=== PATIENT | female | born 1995 | race Caucasian/White ===

== ENCOUNTER 2019-07-20 10:52 | Emergency (ER) | payer BC, SELFPAY ==
[2019-07-20 11:16] VITALS: BP 140/77; PULSE 91; RESP 16; TEMP 36.9; O2SAT 100
--- NOTE | 2019-07-20 11:24 | ED.URI ---
HPI - URI/Sore Throat General Chief Complaint: Nausea/Vomiting/Diarrhea Stated Complaint: Abd pain Time Seen by Provider: 07/20/19 11:25 Source: patient and family History of Present Illness HPI Narrative: PATIENT PRESENTS WITH COUGH , GENERALIZED BODY ACHES, FEVER AND NASAL CONGESTION FOR THE PAST 5 DAYS. NORMAL APPETITE NORMAL ACTIVITY. REPORTS LOW BACK PAIN. NO GROSS HEMATURIA, NO CONCERN FOR STD NO VAGINAL DISCHARGE. NO ABDOMINAL PAIN. PATIENT DID HAVE NAUSEA YESTERDAY BUT NONE TODAY. NO ABDOMINAL PAIN TODAY. NO DIARRHEA. MD elicited complaint: fever, cough and nasal congestion Severity: mild Related Data Allergies Allergy/AdvReac Type Severity Reaction Status Date / Time latex Allergy Rash Verified 07/20/19 11:31 UNKNOWN ANTIBIOTIC Allergy Hives Uncoded 04/30/19 12:12 Review of Systems Review of Systems: Narrative: CONSTITUTIONAL: Denies fever, chills, or sweats. EYES: Denies visual changes, redness, or discharge. ENT: Denies, congestion, sore throat, or otalgia. Reports nasal congestion CARDIOVASCULAR: Denies chest pain, palpitations, or edema. RESPIRATORY: Denies cough or dyspnea. GASTROINTESTINAL: Denies abdominal pain, nausea, vomiting, or diarrhea. GENITOURINARY: Denies hematuria. SKIN: Denies rash or itching. MUSCULOSKELETAL: Denies , joint pain, or myalgia. Reports low back pain NEUROLOGIC: Denies headache, numbness, or weakness. PSYCHIATRIC: Denies anxiety or depression. FORMERLY [facility] Past Medical History Medical History Asthma Comments At time of signature, agree with nursing past medical, surgical, social and family history. There is no relevant family history pertinent to the presenting complaint Exam Narrative: Exam Narrative: GENERAL: Well-appearing, well-nourished, and in no acute distress. HEAD: Normocephalic, atraumatic. EYES: PERRLA and EOMI. ENT: Nares clear, no rhinorrhea or epistaxis. Mucous membranes moist. NECK: Supple. CHEST: Clear to auscultation. No respiratory distress. HEART: Regular rate and rhythm. No murmur heard. Normal peripheral pulses. ABDOMEN: Soft, nontender, nondistended, normal active bowel sounds. EXTREMITIES: Normal range of motion. No edema. SKIN: Warm, dry, no rash. NEURO: No focal deficits. Alert and oriented x3. [place] Coma Scale Eye Opening: Spontaneous 4 [place] Coma Scale Motor: Obeys Commands 6 [place] Coma Scale Verbal: Oriented 5 [place] Coma Scale Total 15 Course Vital Signs Vital signs: Vital Signs Temperature 36.9 C 07/20/19 11:16 Pulse Rate 91 07/20/19 11:16 Respiratory Rate 16 07/20/19 11:16 Blood Pressure 140/77 07/20/19 11:16 Pulse Oximetry 100 07/20/19 11:16 Temperature 36.9 C 07/20/19 11:16 Pulse Rate 91 07/20/19 11:16 Respiratory Rate 16 07/20/19 11:16 Blood Pressure 140/77 07/20/19 11:16 Pulse Oximetry 100 07/20/19 11:16 Please BRI schedule a followup visit with your personal physician for further evaluation and treatment. Including recheck and discussion of your blood pressure. If your symptoms persist, change or worsen significantly before you can contact your personal physician then please, without delay, go to the emergency department for further evaluation MDM - URI/Sore Throat Differential Diagnosis Differential diagnosis: Likely upper respiratory infection, otitis media, bronchitis and influenza Lab Data Labs: Influenza A Screen Negative Reference Range: Negative Influenza B Screen Negative Reference Range: Negative Urine Glucose Negative Reference Range: Negative Urine Bilirubin Negative Reference Range: Negative Urine Ketone Negative Reference Range: Negative Urine Specific [place] 1.020 Reference Range:1.001-1.035 Urine Blood 2+ Reference Range: Negative * *
== END 2019-07-20 11:45 | disposition home or self-care (01) ==
PROVIDERS: Emergency Provider Nurse Practitioner Family
DX: B34.9 Viral infection, unspecified (principal); R30.0 Dysuria; N39.0 Urinary tract infection, site not specified
CPT/HCPCS: 81003; 87077; 87086; 87088; 87804; 99213; G0463

== ENCOUNTER 2019-08-23 08:58 | Emergency (ER) | payer BC, SELFPAY ==
[2019-08-23 09:06] VITALS: BP 138/67; PULSE 74; RESP 18; TEMP 36.6; O2SAT 100
--- NOTE | 2019-08-23 09:11 | ED.EAR ---
HPI - Ear Problem General Chief complaint: Ear Stated complaint: Ear pain and fever Time Seen by Provider: 08/23/19 09:11 Source: patient and RN notes reviewed History of Present Illness HPI Narrative: Patient is a 24-year-old female that presents the urgent care with complaints of left ear pain as well as dark orange drainage from the ear. Patient states is been going on for 2 days and she has not used anything [id number] for her symptoms. No other acute complaints. No acute distress noted. Patient read the plan of care. Related Data Home Medications Medication Instructions Recorded Confirmed No Home Medications 08/23/19 08/23/19 Allergies Allergy/AdvReac Type Severity Reaction Status Date / Time latex Allergy Rash Verified 08/23/19 09:11 sulfamethoxazole Allergy Hives Verified 08/23/19 09:11 [From Bactrim] trimethoprim [From Bactrim] Allergy Hives Verified 08/23/19 09:11 Review of Systems Review of Systems: Narrative: CONSTITUTIONAL: Reports a fever EYES: Denies visual changes, redness, or discharge. ENT: Reports of orange drainage from the left ear with pain CARDIOVASCULAR: Denies chest pain, palpitations, or edema. RESPIRATORY: Denies cough or dyspnea. GASTROINTESTINAL: Denies abdominal pain, nausea, vomiting, or diarrhea. GENITOURINARY: Denies dysuria or hematuria. SKIN: Denies rash or itching. MUSCULOSKELETAL: Denies back pain, joint pain, or myalgia. NEUROLOGIC: Denies headache, numbness, or weakness. All other systems reviewed are negative, except as documented in HPI. PMFSH Comments At the time of my signature, I reviewed and agree with the nursing past medical, surgical, social, and family history. There is no relevant family history pertinent to the patient complaint. Exam Narrative: Exam Narrative: GENERAL: This is a well-nourished, well-developed patient, in no apparent distress. HEAD: normocephalic, atraumatic. EYES: PERRL. Sclera clear/white. Vision is grossly intact. EARS: External ears normal, auditory canals clear and without drainage, moderate fluid noted behind left TM without otitis, right TMs normal without perforation. Hearing grossly intact. NOSE: External nose normal with no obvious nasal discharge, nares without redness, no rhinorrhea. THROAT: Mucous membranes moist, posterior pharynx clear. NECK: Neck supple CARDIOVASCULAR: Regular rate and rhythm without murmurs, gallops, or rubs. RESPIRATORY: Clear to auscultation. Breath sounds equal bilaterally. No wheezes, rales, or rhonchi. SKIN: warm, intact with no suspicious lesions or rash, good texture and turgor. NEURO: awake, alert, and oriented to person, place and time. There were no obvious focal neurologic abnormalities. EXTREMITIES: No clubbing, cyanosis, or edema. Course Vital Signs Vital signs: Vital Signs Temperature 98 F 08/23/19 09:06 Pulse Rate 74 08/23/19 09:06 Respiratory Rate 18 08/23/19 09:06 Blood Pressure 138/67 08/23/19 09:06 Pulse Oximetry 100 08/23/19 09:06 Temperature 98 F 08/23/19 09:06 Pulse Rate 74 08/23/19 09:06 Respiratory Rate 18 08/23/19 09:06 Blood Pressure 138/67 08/23/19 09:06 Pulse Oximetry 100 08/23/19 09:06 Reviewed Medical Decision Making MDM Narrative Medical decision making narrative: Advised patient to use warm compress to the left ear as needed for comfort. Use ibuprofen as needed for pain. Use Claritin or Zyrtec [id number] for symptom relief. If you develop any increase in pain associated with fever?follow-up with PCP. Follow-up with PCP within 2 to 5 days or for worsening symptoms or failure to improve. Differential Diagnosis Differential Diagnosis: Pneumonia, Allergic Rhinitis, Upper respiratory cough syndrome, Pharyngitis, Sinusitis, Bronchitis, otitis media, viral URI, Asthma/reactive airway disease, COPD, emphysema Vital Signs Vital Signs: Vital Signs Temperature 98 F 08/23/19 09:06 Pulse Rate 74 08/23/19 09:06 Respirat
== END 2019-08-23 09:21 | disposition home or self-care (01) ==
PROVIDERS: Emergency Provider Nurse Practitioner Family
DX: H92.02 Otalgia, left ear (principal)
CPT/HCPCS: 99211; G0463

== ENCOUNTER 2019-09-03 19:16 | Emergency (ER) | payer BC, SELFPAY ==
[2019-09-03 19:22] VITALS: BP 119/74; PULSE 90; RESP 18; TEMP 37.7; O2SAT 100
--- NOTE | 2019-09-03 19:44 | ED.URI ---
HPI - URI/Sore Throat General Chief Complaint: Upper Respiratory Infection Stated Complaint: sore throat/fever Time Seen by Provider: 09/03/19 19:44 Source: patient and RN notes reviewed Mode of arrival: ambulatory Limitations: no limitations History of Present Illness HPI Narrative: 24 year old female presents to [facility] care with one day history of sore scratchy throat, head congestion and clear nasal drainage, fatigue, cough which is dry and low grade temperature with chills. Patient states that she went to work today and they sent her home due to illness needs a work note. Patient describes her pain as burning to her throat rates it a 4/10.Patient states that she has been taking Mucinex for her symptoms states did not receive a flu shot this season. MD elicited complaint: fever (low grade temperatre), cough, sore throat, rhinorrhea and nasal congestion Pertinent past history: asthma and other (vapes) Onset (ago): day(s) (1) Consistency: constant Severity: moderate Pain scale (0-10): 4 Description of mucous: clear Able to tolerate fluids by mouth: Yes Exacerbating factors: swallowing Relieving factors: nothing Associated symptoms: fever, chills, rhinorrhea, nasal congestion, sore throat and cough Treatments prior to arrival: other (mucinex) Related Data Home Medications Medication Instructions Recorded Confirmed No Home Medications 09/03/19 09/03/19 Allergies Allergy/AdvReac Type Severity Reaction Status Date / Time latex Allergy Rash Verified 09/03/19 19:52 sulfamethoxazole Allergy Hives Verified 09/03/19 19:52 [From Bactrim] trimethoprim [From Bactrim] Allergy Hives Verified 09/03/19 19:52 Review of Systems Review of Systems: Narrative: CONSTITUTIONAL: positive low grade fever, chills, or sweats. EYES: Denies visual changes, redness, or discharge. ENT: positive rhinorrhea, congestion, sore throat, no otalgia. CARDIOVASCULAR: Denies chest pain, palpitations, or edema. RESPIRATORY:positive cough denies dyspnea. GASTROINTESTINAL: Denies abdominal pain, nausea, vomiting, or diarrhea. GENITOURINARY: Denies dysuria or hematuria. SKIN: Denies rash or itching. MUSCULOSKELETAL: Denies back pain, joint pain, or myalgia. NEUROLOGIC: Denies headache, numbness, or weakness. PSYCHIATRIC:positive history anxiety or depression. All systems reviewed & are unremarkable except as noted in HPI and below PMFSH Past Medical History Medical History (Updated 09/06/19 @ 19:39 by Jada Minor NP) Asthma Depression Ulnar nerve entrapment at elbow Social History Social History (Updated 09/03/19 @ 19:55 by Jada Minor NP) Smoking status: Former smoker Smoking end date: 06/23/18 Additional smoking assessment comments: vapes now Living arrangements: with family Gender identity (if verbalized by the patient): Female Comments At time of signature, agree with nursing past medicall, social history. There is no relevant family history pertinent to the presenting complaint Exam Narrative: Exam Narrative: GENERAL: Well-appearing, well-nourished, and in no acute distress. HEAD: Normocephalic, atraumatic. EYES: PERRLA and EOMI. ENT: Nares red, clear rhinorrhea no epistaxis. Mucous membranes moist. TMs normal with good light reflex. throat red tonsils swollen no lesions or exudates noted NECK: Supple. Positive lymphadenopathy CHEST: Clear to auscultation. No respiratory distress. Cough HEART: Regular rate and rhythm. No murmur heard. Normal peripheral pulses. ABDOMEN: Soft, nontender, nondistended, normal active bowel sounds. EXTREMITIES: Normal range of motion. No edema. SKIN: Warm, dry, no rash. NEURO: No focal deficits. Alert and oriented x3. Course Vital Signs Vital signs: Vital Signs Temperature 37.7 C H 09/03/19 19:22 Pulse Rate 90 09/03/19 19:22 Respiratory Rate 18 09/03/19 19:22 Blood Pressure 119/74 09/03/19 19:22 Pulse Oximetry 100 09/03/19 19:22 Temperature 37.7 C H 03
== END 2019-09-03 19:45 | disposition home or self-care (01) ==
PROVIDERS: Emergency Provider Registered Nurse
DX: J03.90 Acute tonsillitis, unspecified (principal); Z87.891 Personal history of nicotine dependence; J45.909 Unspecified asthma, uncomplicated
CPT/HCPCS: 87081; 87804; 87880; 99213; G0463